=== PATIENT | male | born 1965 | race Hispanic/Latino ===

== ENCOUNTER → 2018-02-02 | Outpatient (CLI) | payer MEDICAID | END | disposition home or self-care (01) | LOC: SHCH 14:40 | PROVIDERS: ATTEND Internal Medicine Cardiovascular Disease | DX: I10 Essential (primary) hypertension (principal); I25.10 Atherosclerotic heart disease of native coronary artery without angina pectoris | CPT/HCPCS: 93306 ==

== ENCOUNTER → 2018-02-06 | Outpatient (CLI) | payer MEDICAID ==
[~2018-02-06] VITALS: Ht 167.6 cm; Wt 91.2 kg
[~2018-02-06] MED LIST: REGADENOSON 0.4 MG/5 ML PF SYG IVP SCH
== END | disposition home or self-care (01) ==
LOC: EDUNIT# 09:00 → SHCH 09:08
PROVIDERS: ATTEND Internal Medicine Cardiovascular Disease
DX: Z01.818 Encounter for other preprocedural examination (principal); I25.10 Atherosclerotic heart disease of native coronary artery without angina pectoris
CPT/HCPCS: 78452; 93017; 96374; A9500 ×2; J2785

== ENCOUNTER → 2018-02-20 | Outpatient (CLI) | payer MEDICAID ==
[~2018-02-20] MED LIST changes: +AMLO10TA6 PO; +ASPI-555 PO; +ATOR40TA71 PO; +CLOP75TA14 PO; +DOXA4TAB3 PO; +HYDR-4154 PO; +LISI40TA4 PO; -REGADENOSON 0.4 MG/5 ML PF SYG IVP SCH; +SITA50TA PO
[2018-02-20 13:45] LABS: BASOPHILS % (AUTO) 1.9 % (0.0-5.0); EOSINOPHILS % (AUTO) 2.4 % (0.0-8.0); HEMATOCRIT 45.9 % (42-54); LYMPHOCYTES % (AUTO) 22.7 % (21.0-51.0); MEAN CORPUSCULAR HEMOGLOBIN 32.3 pg (27.0-33.0); MEAN CORPUSCULAR HGB CONC 33.9 g/dL (32.0-36.0); MEAN CORPUSCULAR VOLUME 95.2 fL (79-99); MONOCYTES % (AUTO) 6.3 % (3.0-13.0); NEUTROPHILS % (AUTO) 66.7 % (40.0-77.0); PLATELET COUNT (AUTO) 174 K/uL (130-400); RED BLOOD CELL COUNT(AUTO) 4.82 MIL/uL (4.50-6.20); RED CELL DISTRIBUTION WIDTH 13.6 % (11.0-15.5); WHITE BLOOD COUNT (AUTO) 5.9 K/uL (4.8-10.8)
[2018-02-20 14:09] LABS: CREATININE 1.6 mg/dL (0.5-1.5); POTASSIUM 3.9 mmol/L (3.5-5.1)
[2018-02-20 14:16] LABS: INR 1.01 (0.85-1.15); PARTIAL THROMBOPLASTIN TIME 27.3 SEC (26.3-35.5); PROTHROMBIN TIME 10.6 SEC (9.6-11.6)
[2018-02-20 14:57] LABS: ERYTHROCYTE SEDIMENTATION RATE 2 MM/HR (0-20)
== END | disposition home or self-care (01) ==
LOC: LAB 12:51
DX: Z01.818 Encounter for other preprocedural examination (principal); I10 Essential (primary) hypertension; I25.10 Atherosclerotic heart disease of native coronary artery without angina pectoris
CPT/HCPCS: 36415; 80051; 82043; 82565; 82947; 84075; 84520; 85025; 85610; 85651; 85730

== ENCOUNTER 2018-03-07 12:00 | Observation (INO) | payer MEDICAID ==
[~2018-03-07] VITALS: Ht 167.6 cm; Wt 84.4 kg
[2018-03-07 12:41] VITALS: BP 145/87
[2018-03-07] MEDS ORDERED: ASPI-555 PO (13:06)
[2018-03-07] MEDS ORDERED: CLOP75TA14 PO (13:06)
[2018-03-07] MEDS ORDERED: SITA50TA PO (13:06)
[2018-03-07] MEDS ORDERED: ATOR40TA71 PO (13:06)
[2018-03-07] MEDS ORDERED: LISI40TA4 PO (13:06)
[2018-03-07] MEDS ORDERED: DOXA4TAB3 PO (14:39)
[2018-03-07] MEDS ORDERED: AMLO10TA6 PO (14:39)
[2018-03-07] MEDS ORDERED: HYDR-4154 PO (14:39)
[2018-03-07] MEDS ORDERED: CEFAZOLIN SODIUM 1 GM VIAL IVP SCH (15:30)
[2018-03-08] VITALS (18 sets, daily range): BP systolic 117–186; BP diastolic 56–96
[2018-03-08] MEDS ORDERED: SODIUM CHLORIDE 0.9% 1000ML 1,000 ML IV ONE (10:43)
[2018-03-08] MEDS ORDERED: CEFAZOLIN SODIUM 1 GM VIAL ONE ×2 (10:43→12:18)
[2018-03-08] MEDS ORDERED: PROPOFOL 10 MG/ML 20ML VIAL IV ONE (12:49)
[2018-03-08] MEDS ORDERED: ONDANSETRON HCL 4 MG/2 ML VIAL ONE ×2 (12:49→16:02)
[2018-03-08] MEDS ORDERED: GLYCOPYRROLATE 1 MG/5 ML SYRINGE ONE (12:49)
[2018-03-08] MEDS ORDERED: DEXAMETHASONE SOD PHOSPHATE 10MG/ML 1ML VIAL ONE (12:49)
[2018-03-08] MEDS ORDERED: NEOSTIGMINE 5MG/5ML SYR IV ONE (12:49)
[2018-03-08] MEDS ORDERED: LIDOCAINE PF 2% 5ML ABBOJECT ONE (12:49)
[2018-03-08] MEDS ORDERED: SUCCINYLCHOLINE 200MG/10ML SYR ONE (12:49)
[2018-03-08] MEDS ORDERED: ROCURONIUM 10MG/1ML SYR 10 MG/ML ML ONE (12:50)
[2018-03-08] MEDS ORDERED: MIDAZOLAM HCL 1 MG/ML 2ML VIAL ONE (12:50)
[2018-03-08] MEDS ORDERED: FENTANYL CITRATE PF 50 MCG/1 ML 2ML VIAL ONE (12:50)
[2018-03-08] MEDS ORDERED: ROPIVACAINE 0.5% 5MG/ML 30ML IJ ONE (13:19)
[2018-03-08] MEDS ORDERED: EPHEDRINE SULFATE 50 MG/ML AMPULE ONE (13:41)
[2018-03-08] MEDS ORDERED: MORPHINE SULFATE 4 MG/1ML SYG ONE (15:18)
[2018-03-08 15:37] LABS: HEMATOCRIT 43.1 % (42-54)
[2018-03-08] MEDS ORDERED: PROMETHAZINE HCL 25 MG/ML 1ML AMPULE IM ONE (17:13)
[2018-03-08] MEDS ORDERED: ONDANSETRON HCL 4 MG/2 ML VIAL IVP PRN (17:15)
[2018-03-08] MEDS ORDERED: ACETAMINOPHEN 325 MG TAB PO PRN (17:15)
[2018-03-08] MEDS ORDERED: PROMETHAZINE HCL 25 MG/ML 1ML AMPULE IM PRN ×2 (17:15→18:45)
[2018-03-08] MEDS ORDERED: HYDRALAZINE HCL 25 MG TABLET PO PRN (17:15)
[2018-03-08 17:57] LABS: HEMATOCRIT 44.5 % (42-54)
[2018-03-08] MEDS ORDERED: LACTATED RINGERS 1000ML 1,000 ML IV ONE (18:25)
[2018-03-08] MEDS ORDERED: BISACODYL 10 MG SUPP.RECT RC PRN (18:45)
[2018-03-08] MEDS ORDERED: LACTATED RINGERS 1000ML 1,000 ML IV SCH (18:45)
[2018-03-08] MEDS ORDERED: MAGNESIUM HYDROXIDE 30 ML/UDCUP PO PRN (18:45)
[2018-03-08] MEDS ORDERED: MORPHINE SULFATE 10 MG/ML 1ML VIAL IM PRN (18:45)
[2018-03-08] MEDS ORDERED: AMLODIPINE BESYLATE 5 MG TAB PO SCH (21:00)
[2018-03-08] MEDS ORDERED: ATORVASTATIN CALCIUM 40 MG TABLET PO SCH (21:00)
[2018-03-08] MEDS ORDERED: DOXAZOSIN MESYLATE 2 MG TABLET PO SCH (21:00)
[2018-03-08] MEDS: CEFAZOLIN SODIUM 1 GM VIAL IVP SCH (21:04)
[2018-03-08] MEDS: HYDRALAZINE HCL 25 MG TABLET PO SCH ×2 (21:04→21:08)
[2018-03-08] MEDS: ACETAMINOPHEN-CODEINE 300/30MG TAB PO PRN (21:11)
[2018-03-08] MEDS ORDERED: MORPHINE SULFATE 2 MG/ML 1ML SYG ONE (23:37)
[2018-03-09] VITALS: BP 155/82
[2018-03-09 00:31] LABS: HEMATOCRIT 44.5 % (42-54)
[2018-03-09] MEDS ORDERED: MORPHINE SULFATE 4 MG/1ML SYG ONE (02:43)
[2018-03-09] MEDS ORDERED: MORPHINE SULFATE 4 MG/1ML SYG IV ONE (03:15)
[2018-03-09 04:00] VITALS: BP 140/82
[2018-03-09] MEDS: CEFAZOLIN SODIUM 1 GM VIAL IVP SCH ×2 (04:25→11:42)
[2018-03-09] MEDS: ACETAMINOPHEN-CODEINE 300/30MG TAB PO PRN ×3 (04:32→17:22)
[2018-03-09] MEDS: HYDRALAZINE HCL 25 MG TABLET PO SCH ×3 (04:32→17:21)
[2018-03-09 06:37] LABS: BASOPHILS % (AUTO) 0.4 % (0.0-5.0); EOSINOPHILS % (AUTO) 0.3 % (0.0-8.0); HEMATOCRIT 44.2 % (42-54); LYMPHOCYTES % (AUTO) 11.4 % (21.0-51.0); MEAN CORPUSCULAR HEMOGLOBIN 32.4 pg (27.0-33.0); MEAN CORPUSCULAR HGB CONC 34.1 g/dL (32.0-36.0); MEAN CORPUSCULAR VOLUME 95.1 fL (79-99); MONOCYTES % (AUTO) 7.8 % (3.0-13.0); NEUTROPHILS % (AUTO) 80.1 % (40.0-77.0); PLATELET COUNT (AUTO) 146 K/uL (130-400); RED BLOOD CELL COUNT(AUTO) 4.64 MIL/uL (4.50-6.20); RED CELL DISTRIBUTION WIDTH 13.5 % (11.0-15.5); WHITE BLOOD COUNT (AUTO) 10.5 K/uL (4.8-10.8)
[2018-03-09 06:53] LABS: ALBUMIN 3.3 g/dL (3.5-5.0); BILIRUBIN,TOTAL 0.7 mg/dL (0.2-1.0); CREATININE 1.8 mg/dL (0.5-1.5); POTASSIUM 4.4 mmol/L (3.5-5.1); TOTAL PROTEIN, SERUM 6.8 g/dL (6.0-8.3)
[2018-03-09 08:00] VITALS: BP 136/79
[2018-03-09] MEDS ORDERED: ASPIRIN 81MG TAB.CHEW PO SCH (09:00)
[2018-03-09] MEDS ORDERED: CLOPIDOGREL BISULFATE 75 MG TAB PO SCH (09:00)
[2018-03-09] MEDS ORDERED: LISINOPRIL 40 MG TABLET PO SCH (09:00)
[2018-03-09 11:00] VITALS: BP 137/83
[2018-03-09 16:00] VITALS: BP 145/96
[2018-03-09] MEDS ORDERED: MORPHINE SULFATE 2 MG/ML 1ML SYG IVP PRN (17:15)
[2018-03-09] MEDS ORDERED: TYL3 PO ×2 (17:41→17:49)
[2018-03-09] MEDS ORDERED: HYDROCODONE/ACETAMINOPHEN 5/325 MG TAB PO PRN (17:50)
== END 2018-03-09 18:30 | disposition home or self-care (01) ==
LOC: EDSTATUS 12:00 → DAHIP 03-08 09:56 → 4BH 03-08 15:44
DX: M75.42 Impingement syndrome of left shoulder (principal); M75.01 Adhesive capsulitis of right shoulder; E11.9 Type 2 diabetes mellitus without complications; E78.5 Hyperlipidemia, unspecified; I10 Essential (primary) hypertension; I69.354 Hemiplegia and hemiparesis following cerebral infarction affecting left non-dominant side; Z83.3 Family history of diabetes mellitus
CPT/HCPCS: 23130; 36415 ×2; 80053; 82948 ×2; 85014 ×3; 85018 ×3; 85025; 88304; 88311; 94760; 96372; 96374; 96376; 97039; 97116 ×2; 97161; A4218 ×2; A4606; A4930; A6223; C1713; G0378 ×34; G8978; G8979; G8980; G8981; G8982; G8983; J0330; J0690 ×5; J1100; J2001; J2250; J2270 ×2; J2405 ×2; J2550; J2704; J2710; J2795; J3010; J3490 ×2; J7030 ×2; J7120

== ENCOUNTER 2023-10-31 11:43 | Inpatient (IN) | payer MEDICAID, OTHER ==
[~2023-10-31] VITALS: Ht 172.7 cm; Wt 69.1 kg
[~2023-10-31 11:43] MED LIST changes: +AMLO-258 PO; -AMLO10TA6 PO; -ASPI-555 PO; +ASPI-556 PO; +CLOP-31 PO; -CLOP75TA14 PO; -HYDR-4154 PO; +HYDR50TA37 PO; -LISI40TA4 PO; +LISI40TA9 PO; +TYL3 PO
[2023-10-31 12:14] LABS: BASOPHILS # (AUTO) 0.01 K/uL (0.00-0.20); BASOPHILS % (AUTO) 0.3 % (0.0-5.0); EOSINOPHILS # (AUTO) 0.03 K/uL (0.00-0.70); EOSINOPHILS % (AUTO) 0.8 % (0.0-8.0); HEMATOCRIT 45.1 % (42-54); IMMATURE GRANULOCYTE ABSOLUTE 0.01 K/uL (0-1); LYMPHOCYTES # (AUTO) 0.9 K/uL (1.0-4.8); LYMPHOCYTES % (AUTO) 24.3 % (21.0-51.0); MEAN CORPUSCULAR HEMOGLOBIN 31.2 pg (27.0-33.0); MEAN CORPUSCULAR HGB CONC 34.1 g/dL (32.0-36.0); MEAN CORPUSCULAR VOLUME 91.3 fL (79-99); MONOCYTES # (AUTO) 0.3 K/uL (0.1-1.0); MONOCYTES % (AUTO) 8.4 % (3.0-13.0); NEUTROPHILS # (AUTO) 2.4 K/uL (1.8-7.7); NEUTROPHILS % (AUTO) 65.9 % (40.0-77.0); PLATELET COUNT (AUTO) 95 K/uL (130-400); RED BLOOD CELL COUNT(AUTO) 4.94 MIL/uL (4.50-6.20); RED CELL DISTRIBUTION WIDTH 13.2 % (11.0-15.5); WHITE BLOOD COUNT (AUTO) 3.6 K/uL (4.8-10.8)
[2023-10-31 12:22] LABS: CREATININE 1.7 mg/dL (0.5-1.3); POTASSIUM 4.1 mmol/L (3.5-5.1)
[2023-10-31 12:31] LABS: ALBUMIN 3.1 g/dL (3.5-5.0); BILIRUBIN,TOTAL 0.7 mg/dL (0.2-1.0)
[2023-10-31 16:21] LABS: APPEARANCE,URINE CLEAR (CLEAR); BILIRUBIN,URINE NEGATIVE (NEGATIVE); COLOR,URINE YELLOW (YELLOW); GLUCOSE, URINE (UA) NEGATIVE (NEGATIVE); KETONES,URINE 5 mg/dL (NEGATIVE); LEUKOCYTE ESTERASE ,URINE NEGATIVE Leu/uL (NEGATIVE); NITRATE,URINE NEGATIVE (NEGATIVE); OCCULT BLOOD,URINE NEGATIVE (NEGATIVE); PROTEIN,URINE 30 mg/dL (NEGATIVE)
[2023-10-31 16:23] LABS: ADD UA MICROSCOPIC YES; MUCUS,URINE RARE LPF (None Seen); RBC,URINE 0-1 /HPF (0-1); SQUAMOUS EPITHELIAL CELL,UR RARE /HPF (0-2)
[2023-10-31] MEDS: 0.9%NACL 1000ML 1,000 ML IV SCH (16:39)
[2023-10-31] MEDS: ASPIRIN 81MG CHEW TAB PO ONE (16:39)
[2023-10-31 16:58] LABS: HEMOGLOBIN A1C 6.3 % (4.0-6.0)
[2023-10-31 17:04] LABS: THYROID STIMULATING HORMONE 2.85 uIU/mL (0.36-3.74)
[2023-10-31 17:50] VITALS: O2SAT 96
[2023-10-31 20:00] VITALS: PULSE 63; RESP 19
[2023-10-31] MEDS: CARVEDILOL 6.25 MG TABLET PO SCH (20:19)
[2023-10-31] MEDS: FAMOTIDINE 20MG VIAL IV SCH (20:19)
[2023-10-31] MEDS: CLOPIDOGREL 75MG TAB PO ONE (20:21)
[2023-10-31 21:38] VITALS: O2SAT 96
[2023-10-31 22:52] LABS: AMPHET/METH SCREEN,URINE NEGATIVE (NEGATIVE); BARBITURATE SCREEN, URINE NEGATIVE (NEGATIVE); BENZODIAZEPINES SCREEN,URINE NEGATIVE (NEGATIVE); CANNABINOID SCREEN,URINE NEGATIVE (NEGATIVE); COCAINE SCREEN,URINE NEGATIVE (NEGATIVE); OPIATE SCREEN,URINE NEGATIVE (NEGATIVE); PHENCYCLIDINE SCREEN,URINE NEGATIVE (NEGATIVE)
[2023-11-01] VITALS (9 sets, daily range): BP systolic 142–161; BP diastolic 55–108; PULSE 56–70; RESP 18–19; O2SAT 97
[2023-11-01] MEDS: HYDRALAZINE 20MG/ML VIAL IV ONE (05:20)
[2023-11-01 08:24] LABS: BASOPHILS # (AUTO) 0.01 K/uL (0.00-0.20); BASOPHILS % (AUTO) 0.3 % (0.0-5.0); EOSINOPHILS # (AUTO) 0.02 K/uL (0.00-0.70); EOSINOPHILS % (AUTO) 0.6 % (0.0-8.0); HEMATOCRIT 44.7 % (42-54); IMMATURE GRANULOCYTE ABSOLUTE 0.02 K/uL (0-1); LYMPHOCYTES # (AUTO) 0.9 K/uL (1.0-4.8); LYMPHOCYTES % (AUTO) 25.4 % (21.0-51.0); MEAN CORPUSCULAR HEMOGLOBIN 31.1 pg (27.0-33.0); MEAN CORPUSCULAR HGB CONC 33.8 g/dL (32.0-36.0); MONOCYTES # (AUTO) 0.2 K/uL (0.1-1.0); MONOCYTES % (AUTO) 6.1 % (3.0-13.0); NEUTROPHILS # (AUTO) 2.3 K/uL (1.8-7.7); PLATELET COUNT (AUTO) 88 K/uL (130-400); RED BLOOD CELL COUNT(AUTO) 4.86 MIL/uL (4.50-6.20); RED CELL DISTRIBUTION WIDTH 13.3 % (11.0-15.5); WHITE BLOOD COUNT (AUTO) 3.4 K/uL (4.8-10.8)
[2023-11-01 08:29] LABS: CREATININE 1.5 mg/dL (0.5-1.3)
[2023-11-01] MEDS: ENOXAPARIN SODIUM 30 MG/0.3 ML SQ SCH (09:06)
[2023-11-01] MEDS: ATORVASTATIN 20 MG TABLET PO SCH (09:07)
[2023-11-01] MEDS: CLOPIDOGREL 75MG TAB PO SCH (09:07)
[2023-11-01] MEDS: ASPIRIN 81MG CHEW TAB PO SCH (09:07)
[2023-11-02] VITALS (8 sets, daily range): BP systolic 117–171; BP diastolic 79–96; PULSE 51–79; RESP 16–19; O2SAT 97
[2023-11-02 05:26] LABS: HEMATOCRIT 42.4 % (42-54); MEAN CORPUSCULAR HEMOGLOBIN 31.9 pg (27.0-33.0); PLATELET COUNT (AUTO) 78 K/uL (130-400); RED BLOOD CELL COUNT(AUTO) 4.51 MIL/uL (4.50-6.20); RED CELL DISTRIBUTION WIDTH 13.2 % (11.0-15.5); WHITE BLOOD COUNT (AUTO) 2.9 K/uL (4.8-10.8)
[2023-11-02 05:57] LABS: CREATININE 1.1 mg/dL (0.5-1.3); POTASSIUM 3.4 mmol/L (3.5-5.1)
[2023-11-02 06:03] LABS: BAND NEUTROPHILS % (MANUAL) 2 % (0-2); LYMPHOCYTES % (MANUAL) 47 % (22-44); MAN.DIFF COMMENT-IMPRESSION MANUAL DIFFERENTIAL; MONOCYTES % (MANUAL) 6 % (2-9); SEGMENTED NEUTROPHILS % 45 % (40-70); TOTAL CELLS COUNTED 100; WBC MORPHOLOGY REACTIVE LYMPHS 1+
[2023-11-02] MEDS ORDERED: POTASSIUM CHLORIDE 20MEQ/100ML 100 ML IV PRN (09:30)
[2023-11-02] MEDS: KCL 20 MEQ ERTAB PO PRN (09:36)
[2023-11-02] MEDS: AZITHROMYCIN 500MG+NS 250ML 250 ML IVPB SCH (16:46)
[2023-11-02 16:58] LABS: CREATININE 1.4 mg/dL (0.5-1.3)
[2023-11-03] VITALS (10 sets, daily range): BP systolic 149–166; BP diastolic 54–99; PULSE 47–57; RESP 16–20; O2SAT 97–98
[2023-11-03 05:32] LABS: BASOPHILS # (AUTO) 0.01 K/uL (0.00-0.20); BASOPHILS % (AUTO) 0.3 % (0.0-5.0); EOSINOPHILS # (AUTO) 0.07 K/uL (0.00-0.70); EOSINOPHILS % (AUTO) 2.2 % (0.0-8.0); HEMATOCRIT 43.1 % (42-54); IMMATURE GRANULOCYTE ABSOLUTE 0.03 K/uL (0-1); LYMPHOCYTES # (AUTO) 1.2 K/uL (1.0-4.8); LYMPHOCYTES % (AUTO) 37.3 % (21.0-51.0); MEAN CORPUSCULAR HEMOGLOBIN 31.5 pg (27.0-33.0); MEAN CORPUSCULAR HGB CONC 33.6 g/dL (32.0-36.0); MEAN CORPUSCULAR VOLUME 93.5 fL (79-99); MONOCYTES # (AUTO) 0.2 K/uL (0.1-1.0); MONOCYTES % (AUTO) 6.6 % (3.0-13.0); NEUTROPHILS # (AUTO) 1.7 K/uL (1.8-7.7); NEUTROPHILS % (AUTO) 52.7 % (40.0-77.0); PLATELET COUNT (AUTO) 81 K/uL (130-400); RED BLOOD CELL COUNT(AUTO) 4.61 MIL/uL (4.50-6.20); RED CELL DISTRIBUTION WIDTH 13.2 % (11.0-15.5); WHITE BLOOD COUNT (AUTO) 3.2 K/uL (4.8-10.8)
[2023-11-03 05:37] LABS: MAGNESIUM 1.5 mg/dL (1.80-2.40); POTASSIUM 3.4 mmol/L (3.5-5.1)
[2023-11-03] MEDS: MAGNESIUM 2GM PREMIX 50ML 50 ML IV PRN (06:23)
[2023-11-03] MEDS: POTASSIUM CHLORIDE 10% ELIXIR 20 MEQ/15 ML UDCUP PO PRN (06:24)
[2023-11-03] MEDS: ACETAMINOPHEN 500 MG TABLET PO PRN (13:34)
[2023-11-04] VITALS (7 sets, daily range): BP systolic 146–160; BP diastolic 84–98; PULSE 53–73; RESP 17–18; O2SAT 98
[2023-11-04 01:06] LABS: INFLUENZA TYPE A Negative For Type A (NEGATIVE); INFLUENZA TYPE B Negative For Type B (NEGATIVE)
[2023-11-04 01:09] LABS: SARS-CoV-2, RNA, NAAT POSITIVE SARS CoV-2 (NEGATIVE)
[2023-11-04] MEDS ORDERED: GUAIFENESIN-DM 200/20 MG 10 ML PO PRN (04:00)
[2023-11-04 04:39] LABS: BASOPHILS # (AUTO) 0.01 K/uL (0.00-0.20); BASOPHILS % (AUTO) 0.3 % (0.0-5.0); EOSINOPHILS # (AUTO) 0.09 K/uL (0.00-0.70); EOSINOPHILS % (AUTO) 2.5 % (0.0-8.0); HEMATOCRIT 40.8 % (42-54); IMMATURE GRANULOCYTE ABSOLUTE 0.04 K/uL (0-1); LYMPHOCYTES # (AUTO) 1.4 K/uL (1.0-4.8); LYMPHOCYTES % (AUTO) 38.3 % (21.0-51.0); MEAN CORPUSCULAR HEMOGLOBIN 30.8 pg (27.0-33.0); MEAN CORPUSCULAR HGB CONC 33.6 g/dL (32.0-36.0); MEAN CORPUSCULAR VOLUME 91.7 fL (79-99); MONOCYTES # (AUTO) 0.3 K/uL (0.1-1.0); MONOCYTES % (AUTO) 7.9 % (3.0-13.0); NEUTROPHILS # (AUTO) 1.8 K/uL (1.8-7.7); NEUTROPHILS % (AUTO) 49.9 % (40.0-77.0); PLATELET COUNT (AUTO) 90 K/uL (130-400); RED BLOOD CELL COUNT(AUTO) 4.45 MIL/uL (4.50-6.20); RED CELL DISTRIBUTION WIDTH 13.3 % (11.0-15.5); WHITE BLOOD COUNT (AUTO) 3.7 K/uL (4.8-10.8)
[2023-11-04 05:21] LABS: ALBUMIN 2.5 g/dL (3.5-5.0); BILIRUBIN,TOTAL 0.6 mg/dL (0.2-1.0); CREATININE 1.3 mg/dL (0.5-1.3); POTASSIUM 3.8 mmol/L (3.5-5.1); TOTAL PROTEIN, SERUM 5.9 g/dL (6.0-8.3)
[2023-11-04] MEDS: AMLODIPINE 5 MG TAB PO ONE (14:29)
[2023-11-04] MEDS: CARVEDILOL 6.25 MG TABLET PO SCH (21:29)
[2023-11-05] VITALS (10 sets, daily range): BP systolic 131–178; BP diastolic 80–108; PULSE 55–73; RESP 16–19; O2SAT 98–99
[2023-11-05] MEDS: HYDRALAZINE 20MG/ML VIAL IV PRN (04:54)
[2023-11-05 05:00] LABS: HEMATOCRIT 42.9 % (42-54); MEAN CORPUSCULAR HEMOGLOBIN 31.7 pg (27.0-33.0); MEAN CORPUSCULAR HGB CONC 34.5 g/dL (32.0-36.0); MEAN CORPUSCULAR VOLUME 91.9 fL (79-99); RED BLOOD CELL COUNT(AUTO) 4.67 MIL/uL (4.50-6.20); RED CELL DISTRIBUTION WIDTH 13.3 % (11.0-15.5); WHITE BLOOD COUNT (AUTO) 3.6 K/uL (4.8-10.8)
[2023-11-05 05:22] LABS: CREATININE 1.2 mg/dL (0.5-1.3); POTASSIUM 3.6 mmol/L (3.5-5.1)
[2023-11-05] MEDS: AMLODIPINE 5 MG TAB PO SCH (11:02)
[2023-11-06] VITALS (8 sets, daily range): BP systolic 148–167; BP diastolic 79–102; PULSE 51–75; RESP 18–19; O2SAT 97
[2023-11-06] MEDS: LACTULOSE 20 GM/30 ML UDCUP PO ONE (20:32)
[2023-11-06] MEDS: CARVEDILOL 3.125 MG TABLET PO SCH (20:33)
[2023-11-07] VITALS (9 sets, daily range): BP systolic 123–171; BP diastolic 82–92; PULSE 51–71; RESP 14–20; O2SAT 96–98
[2023-11-07] MEDS: HYDRALAZINE 20MG/ML VIAL IV PRN (04:46)
[2023-11-07 13:20] LABS: HEMATOCRIT 44.5 % (42-54); MEAN CORPUSCULAR HEMOGLOBIN 30.9 pg (27.0-33.0); MEAN CORPUSCULAR HGB CONC 33.9 g/dL (32.0-36.0); MEAN CORPUSCULAR VOLUME 91.2 fL (79-99); PLATELET COUNT (AUTO) 149 K/uL (130-400); RED BLOOD CELL COUNT(AUTO) 4.88 MIL/uL (4.50-6.20); RED CELL DISTRIBUTION WIDTH 13.3 % (11.0-15.5)
[2023-11-07 14:06] LABS: EOSINOPHILS % (MANUAL) 1 % (1-6); LYMPHOCYTES % (MANUAL) 20 % (22-44); MAN.DIFF COMMENT-IMPRESSION MANUAL DIFFERENTIAL; MONOCYTES % (MANUAL) 8 % (2-9); PLATELET MORPHOLOGY COMMENT ADEQUATE; REACTIVE LYMPHOCYTES 12 % (0-0); SEGMENTED NEUTROPHILS % 59 % (40-70); TOTAL CELLS COUNTED 100
[2023-11-08] VITALS (8 sets, daily range): BP systolic 104–169; BP diastolic 70–97; PULSE 55–78; RESP 18–19; O2SAT 98–100
[2023-11-08 05:45] LABS: MEAN CORPUSCULAR HGB CONC 34.3 g/dL (32.0-36.0); MEAN CORPUSCULAR VOLUME 90.5 fL (79-99); RED BLOOD CELL COUNT(AUTO) 4.42 MIL/uL (4.50-6.20); RED CELL DISTRIBUTION WIDTH 13.4 % (11.0-15.5)
[2023-11-08 06:01] LABS: CREATININE 1.3 mg/dL (0.5-1.3); POTASSIUM 3.3 mmol/L (3.5-5.1)
[2023-11-09] VITALS (8 sets, daily range): BP systolic 119–154; BP diastolic 61–93; PULSE 53–98; RESP 18–20; O2SAT 98–100
[2023-11-09 05:12] LABS: CREATININE 1.2 mg/dL (0.5-1.3); MAGNESIUM 1.9 mg/dL (1.80-2.40); POTASSIUM 3.5 mmol/L (3.5-5.1)
[2023-11-09] MEDS: LACTULOSE 20 GM/30 ML UDCUP PO PRN (12:26)
[2023-11-10 04:00] VITALS: BP 105/56; PULSE 72; RESP 19
[2023-11-10 05:23] LABS: MAGNESIUM 2.1 mg/dL (1.80-2.40); POTASSIUM 3.7 mmol/L (3.5-5.1)
[2023-11-10 07:35] VITALS: BP 145/81; PULSE 69; RESP 18
[2023-11-10 08:54] VITALS: O2SAT 93
[2023-11-10 10:51] VITALS: BP 127/85; PULSE 72; RESP 18
[2023-11-10 19:20] VITALS: BP 106/72; PULSE 75; RESP 18
[2023-11-10 20:00] VITALS: BP 105/78; PULSE 79; RESP 19
== END 2023-11-10 19:20 | DRG 177 ==
LOC: EDH 11:43 → EDHIP 16:29 → 3DH 17:50 → 3CH 11-04 01:56
PROVIDERS: ADMIT Internal Medicine; ATTEND Internal Medicine
DX: J15.69 Pneumonia due to other Gram-negative bacteria (principal); J12.82 Pneumonia due to coronavirus disease 2019; N17.0 Acute kidney failure with tubular necrosis; U07.1 COVID-19; R53.2 Functional quadriplegia; J15.9 Unspecified bacterial pneumonia; I10 Essential (primary) hypertension; E78.5 Hyperlipidemia, unspecified; D69.6 Thrombocytopenia, unspecified; I25.10 Atherosclerotic heart disease of native coronary artery without angina pectoris; E83.42 Hypomagnesemia; E11.22 Type 2 diabetes mellitus with diabetic chronic kidney disease; D72.819 Decreased white blood cell count, unspecified; I12.9 Hypertensive chronic kidney disease with stage 1 through stage 4 chronic kidney disease, or unspecified chronic kidney disease; N18.9 Chronic kidney disease, unspecified; Z60.8 Other problems related to social environment; Z86.73 Personal history of transient ischemic attack (TIA), and cerebral infarction without residual deficits; Z91.199 Patient's noncompliance with other medical treatment and regimen due to unspecified reason; Z95.5 Presence of coronary angioplasty implant and graft
CPT/HCPCS: 36415; 71045; 73562; 76770; 80048; 80053; 80305; 81001; 82306; 82550; 82948; 83036; 83735; 84132; 84145; 84443; 84484; 85025; 85027; 86140; 87040; 87635; 87804; 93005; 96361; 96374; G0378; J0360; J0456; J1650; J3475; J3490; J7030